=== PATIENT | female | born 2005 | race Caucasian/White ===

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

== ENCOUNTER 2024-12-24 09:02 | Emergency (ER) | payer OTHER, SELFPAY ==
--- NOTE | ~2024-12-24 | CT_ITS ---
EXAMINATION: CT CERVICAL SPINE WITHOUT CONTRAST CLINICAL INFORMATION: Status post fall. COMPARISON: None available. TECHNIQUE: Contiguous axial images through the cervical spine using 3 mm collimation with bone and soft tissue algorithm. Sagittal and coronal reformatted images acquired. This CT examination was performed using dose optimization techniques as appropriate, variously including the following: *Automated exposure control *Adjustment of mA and/or kV according to patient size (this includes techniques or standardized protocols for targeted exams where dose is matched to indication/reason for exam; i.e. extremities or head) *Use of iterative reconstruction technique. DLP: 312 mGy centimeter. FINDINGS: Craniocervical junction is intact. C1 is intact. C2 is intact. C3 is intact. C4 is intact. C5 is intact. C6 is intact. C7 is intact. No gross prevertebral compartment hematoma. Soft tissue fullness in the lingual tonsils into the vallecula. Tympanic cavities and mastoid cells are aerated. CT/CT cervical spine wo IV con IMPRESSION: No acute fracture or trauma-related listhesis. Fleischner guidelines were followed. Electronically signed by: Leonel Bush MD 12/24/2024 01:24 PM [facility]
--- NOTE | ~2024-12-24 | CT_ITS ---
EXAMINATION: CT HEAD WITHOUT CONTRAST CLINICAL INFORMATION: fall, head strike, pain COMPARISON: None available. TECHNIQUE: Contiguous axial imaging was performed from the skull base to vertex without intravenous administration of contrast. This CT examination was performed using dose optimization techniques as appropriate, variously including the following: *Automated exposure control *Adjustment of mA and/or kV according to patient size (this includes techniques or standardized protocols for targeted exams where dose is matched to indication/reason for exam; i.e. extremities or head) *Use of iterative reconstruction technique DLP: 594 mGy-cm FINDINGS: Bony calvarium is intact. Skull base is intact. No acute intracranial hemorrhage, mass effect, midline shift, hydrocephalus or herniation. Ojeda-white matter differentiation is normal. Posterior cranial fossa contents demonstrated no acute intracranial hemorrhage or mass effect. Sellar/suprasellar region demonstrated no gross masses or hemorrhage. Craniocervical junction is intact. No air-fluid levels in the included paranasal sinuses. Tympanic cavities and mastoid air cells are aerated. CT/CT head/brain wo IV con IMPRESSION: No acute fracture, bony calvarium. No acute intracranial hemorrhage. Electronically signed by: Leonel Bush MD 12/24/2024 12:36 PM [facility] [place]
[2024-12-24 09:12] VITALS: BP 118/73; PULSE 102; RESP 16; TEMP 36.6; O2SAT 99; BMI 29.8
--- NOTE | 2024-12-24 09:31 | ED_ITS ---
HPI - General Adult General Chief complaint: Fall Stated complaint: fall head inj vomiting Time Seen by Provider: 12/24/24 09:28 Source: patient and family (patient's boyfriend) Mode of arrival: ambulatory Limitations: no limitations History of Present Illness ED Provider: Jamila Friedman PA-C HPI narrative: Patient is a 19 year old assigned female at with no reported medical history presenting to the emergency department today with a headache, nausea, vomiting, and diarrhea after a fall. Patient states that on 12/23/2024 around 3pm she fell, hitting her head. Patient states that after that, her and her boyfriend went out to eat and many hours after that, she began to have nausea, vomiting, and diarrhea. Patient states that she has also had an intermittent headache. Patient states that she did not have any loss of consciousness with the incident. Patient denies any dizziness, lightheadedness, abdominal pain, fever, chills, blurry vision, double vision, loss of vision, chest pain, difficulty breathing, shortness of breath, back pain, night sweats, pain with urination, increased urinary frequency, increased urinary urgency, blood in her urine or stool, syncope or a near syncopal episode, bowel incontinence, bladder incontinence, or any other complaints at this time. Relieving factors: none Exacerbating factors: none Associated symptoms: nausea/vomiting Treatments prior to arrival: none Related Data Previous Rx's ?Medication ?Instructions ?Recorded levofloxacin 750 mg tablet 750 mg PO DAILY 5 days #5 tabs 03/21/22 loperamide 2 mg capsule 2 mg PO Q4H PRN loose stool #10 04/05/23 caps ondansetron 4 mg disintegrating 4 mg PO Q6H PRN nausea and 04/05/23 tablet vomiting #10 tabs ondansetron 4 mg disintegrating 4 mg PO Q8H 3 days #9 tabs 12/24/24 tablet Allergies Allergy/AdvReac Type Severity Reaction Status Date / Time cephalexin Allergy Unknown Unknown Verified 12/24/24 09:14 Review of Systems 2 Constitutional: Constitutional: Reports no additional constitutional complaints, Denies chills, Denies fever(s), Reports headache(s) and Denies night sweats Eyes: Eyes: Reports no additional eye complaints, Denies blurry vision, Denies change in vision, Denies diplopia, Denies eye discharge, Denies loss of vision and Denies eye pain ENT: Denies dizziness and Reports headache(s) Cardiovascular: Cardiovascular: Reports no additional cardiovascular complaints, Denies chest pain, Denies lightheadedness, Denies Loss of Consciousness and Denies dyspnea Respiratory: Respiratory: Reports no additional respiratory complaints and Denies dyspnea Gastrointestinal: Gastrointestinal: Reports no additional gastrointestinal complaints, Denies abdominal pain, Denies melena, Denies hematochezia, Reports change in bowel habits, Reports change in stool character, Reports diarrhea, Reports nausea and Reports vomiting Genitourinary: Genitourinary: Denies hematuria, Denies urinary frequency, Denies dysuria, Denies urinary incontinence, Denies urinary hesitancy and Denies urinary urgency Musculoskeletal: Musculoskeletal: Reports no additional musculoskeletal complaints, Denies numbness and Denies tingling Neurologic: Denies dizziness, Reports headache(s), Denies loss of vision, Denies numbness and Denies tingling Psychiatric: Psychiatric: Reports no additional psychiatric complaints Endocrine: Endocrine: Reports no additional endocrine complaints Hematologic/Lymphatic: Hematologic/Lymphatic: Reports no additional hematologic/lymphatic complaints Allergic/Immunologic: Allergic/Immunologic: Reports no additional allergic/immunologic complaints PMFSH Past Medical History Attestation statement: The following information was validated with the patient. (all information validated with the patient's boyfriend) Source: old records reviewed, nursing notes reviewed and other (patient's boyfriend provided additional history and confirmed the history provided by the patient.) Social History Social History Alcohol intake: never Smoked in Last 30 Days: No Use of substances other than those prescribed or required for medical reasons: No Advance Directives: No Advance Directives Information Provided: Yes Physical Exam ED Vital Signs: Vital Signs - 24 hr 12/24/24 09:12 12/24/24 15:40 12/24/24 15:58 Temperature 98 F 98.2 F 98.2 F Pulse Rate 102 H 98 98 Respiratory Rate 16 18 18 Blood Pressure 118/73 112/59 L 112/59 L Pulse Oximetry 99 100 100 Oxygen Delivery Method Room Air Room Air Room Air BMI result Body Mass Index 29.8 Const General: cooperative, no acute distress, alert and awake Nutritional Appearance: well nourished Orientation/consciousness: patient oriented x3 Limitations: no limitations HENMT Head: Yes normal to inspection and Yes atraumatic Ears: hearing grossly normal bilaterally and external ears normal General nose exam: Normal external nose present, no nasal discharge noted and no epistaxis Face and sinus: Yes normal facial exam, No abrasion and No laceration Mouth: Normal oral and palatal mucosa present, no drooling and no muffled voice Eyes General: appearance normal, both eyes and all related structures Periorbital: periorbital findings normal Eyelids: Yes eyelids normal Conjunctivae: conjunctivae normal Pupils: Equal, round and reactive pupils present EOM: EOMs intact bilaterally Neck Neck: Yes normal visual inspection, Yes full ROM and Yes no lymphadenopathy Chest Chest palpation & inspection: normal inspection of the chest Resp Effort & Inspection: normal respiratory effort and able to speak in complete sentences GI Inspection: Yes normal to inspection Neuro General: patient oriented x3, moves all extremities and CN's II-XI intact bilaterally Cranial nerves: Yes Equal, round and reactive pupils present Cognition (Neuro): normal cognition Extrem General: Yes normal to inspection, Yes full ROM and Yes capillary refill normal Psych Appearance: grossly normal Mental Status: mental status grossly normal Affect: normal affect Attitude: cooperative Thought process: Normal thought process present Thought content: Normal thought content present Insight: Good insight present (Psych) Medications Administered Discontinued Medications Generic Name Dose Route Start Last Admin Trade Name Primitivoq PRN Reason Stop Dose Admin Diphenhydramine HCl 25 mg 12/24/24 13:36 12/24/24 13:50 Diphenhydramine Hcl 50 Mg/Ml Vial IVPUSH 12/24/24 13:37 25 mg ONCE ONE Administration Sodium Chloride 1,000 mls @ 999 mls/hr 12/24/24 13:45 12/24/24 15:22 Ns IV 12/24/24 14:45 Infused .Q1H1M VALENTIN Infusion Metoclopramide HCl 10 mg 12/24/24 13:36 12/24/24 13:51 Metoclopramide Hcl 10 Mg/2 Ml Vial IVPUSH 12/24/24 13:37 10 mg ONCE ONE Administration Ondansetron HCl 4 mg 12/24/24 09:58 12/24/24 10:12 Ondansetron Hcl 4 Mg/2 Ml Vial IVPUSH 12/24/24 09:59 4 mg ONCE ONE Administration Medical Decision Making Medical Decision Making MDM Narrative: Patient is a 19 year old assigned female at with no reported medical history presenting to the emergency department today with a headache, nausea, vomiting, and diarrhea after a fall. Patient's physical exam was unremarkable. Patient's blood work was unremarkable. Patient's urine showed no acute process. Patient's CT head and c-spine showed no acute process. I explained my physical exam findings as well as all test results to the patient and the patient's boyfriend. I answered all questions asked by the patient and the patient's boyfriend. Patient's clinical presentation is most consistent with a concussion and gastroenteritis. I do not believe patient's nausea, vomiting, and diarrhea are secondary to fall. Patient received IV fluids and anti-emetics which, upon re-evaluation, she stated it helped her symptoms significantly. I stressed the importance of the patient taking her medication as directed (either prescribed or as the over the counter packaging recommends). I stressed the importance of the patient following up with her primary care provider. I stressed the importance of the patient returning to the emergency department immediately if her symptoms were to worsen or if she were to develop any dizziness, shortness of breath, difficulty breathing, chest pain, blurry vision, loss of vision, nausea, vomiting, abdominal pain, fever, chills, back pain, or any other complaints. Patient and the patient's boyfriend verbalized agreement and understanding with this treatment plan and discharge. Differential Diagnosis Differential Diagnoses: The differential diagnosis associated with the presentation includes Concussion Nausea Vomiting Gastroenteritis Food poisoning Admission/Observation Consideration of admission/observation: Escalation of care including admission/observation considered Patient would have been admitted to the hospital had her work up had any findings where hospital admission was appropriate and her clinical presentation warranted hospital admission. Lab Data [facility] Lab Attestation statement: I reviewed the patient's lab results. My interpretation of these results are in the [facility] Rationale portion of this note. 12/24/24 10:11 12/24/24 10:11 Labs: Lab Results 12/24/24 Range/Units 10:11 WBC 9.9 (4.8-10.8) X10*3/uL RBC 4.72 (4.20-5.50) X10*6/uL Hgb 15.5 (12.0-16.0) g/dl Hct 43.0 (37.0-47.0) % MCV 91.1 (80.0-98.0) fL MCH 32.8 (27.0-33.0) pg MCHC 36.0 H (31.0-35.0) g/dl RDW 11.9 (11.0-16.0) % Plt Count 237 (160-400) X10*3/uL MPV 10.3 (9.4-12.3) fL Immature Gran % (Auto) 0.3 (0.0-0.4) % Neut % (Auto) 95.0 H (45-73) % Lymph % (Auto) 2.8 L (20-40) % Navarro % (Auto) 1.7 L (2-11) % Eos % (Auto) 0.0 (0-4) % Baso % (Auto) 0.2 (0-2) % Lymph # (Auto) 0.3 L (1.2-4.9) X10*3/uL Navarro # (Auto) 0.2 (0.1-1.2) X10*3/uL Eos # (Auto) 0.0 (0.0-0.4) X10*3/uL Baso # (Auto) 0.0 (0.0-0.2) X10*3/uL Abs Immat Gran (auto) 0.03 (0.00-0.03) X10*3/uL Absolute Neuts (auto) 9.4 H (2.0-8.3) x10*3/uL Absolute Nucleated RBC 0.000 (0.0-0.012) X10*3/uL Nucleated RBC % (auto) 0.0 (0.0-0.2) /100WBC Smear Tech's Comments VERIFIED Sodium 141 (135-145) mmol/L Potassium 3.5 (3.3-5.1) mmol/L Chloride 106 (96-108) mmol/L Carbon Dioxide 24 (22-29) mmol/L Anion Gap 15 (12-20) BUN 16 (9-16) mg/dL Creatinine 0.77 (0.5-1.4) mg/dL Estim Creat Clear Calc 114.0 Estimated GFR > 60 Random Glucose 131 H (60-115) mg/dL Calcium 9.4 (8.4-10.2) mg/dL Magnesium 1.8 (1.6-2.6) mg/dL Total Bilirubin 0.9 (0.0-1.0) mg/dL AST 20 (5-31) U/L ALT 12 (0-31) U/L Alkaline Phosphatase 60 (39-117) U/L Total Protein 8.3 H (6.5-8.0) g/dL Albumin 4.4 (3.5-5.0) g/dL Beta HCG, Quant < 2 mIU/mL Urine Color Yellow Urine Appearance Clear Urine pH 5.5 (5.0-9.0) Ur Specific [place] >= 1.030 H (1.005-1.025) Urine Protein Trace (Neg-Trace) mg/dL Urine Glucose (UA) Negative (Negative) mg/dL Urine Ketones 80 (Negative) mg/dL Urine Blood Negative (Negative) Urine Nitrite Negative (Negative) Ur Leukocyte Esterase Negative (Negative) Urine Test NEGATIVE (NEGATIVE) Influenza Type A (PCR) NEGATIVE (Negative) Influenza Type B (PCR) NEGATIVE (Negative) RSV RNA Qual (PCR) NEGATIVE (Negative) SARS-CoV-2 RNA (RT-PCR) NEGATIVE (Negative) Independent Interpretation I performed an independent interpretation of an: CT Scan Interpretation: My interpretation is in agreement with the radiologist's impression of these imaging studies. L Report Number: [id number]: Total DLP = 594.00 mGy-cm EXAMINATION: CT HEAD WITHOUT CONTRAST CLINICAL INFORMATION: fall, head strike, pain COMPARISON: None available. TECHNIQUE: Contiguous axial imaging was performed from the skull base to vertex without intravenous administration of contrast. This CT examination was performed using dose optimization techniques as appropriate, variously including the following: *Automated exposure control *Adjustment of mA and/or kV according to patient size (this includes techniques or standardized protocols for targeted exams where dose is matched to indication/reason for exam; i.e. extremities or head) *Use of iterative reconstruction technique DLP: 594 mGy-cm FINDINGS: Bony calvarium is intact. Skull base is intact. No acute intracranial hemorrhage, mass effect, midline shift, hydrocephalus or herniation. Ojeda-white matter differentiation is normal. Posterior cranial fossa contents demonstrated no acute intracranial hemorrhage or mass effect. Sellar/suprasellar region demonstrated no gross masses or hemorrhage. Craniocervical junction is intact. No air-fluid levels in the included paranasal sinuses. Tympanic cavities and mastoid air cells are aerated. CT/CT head/brain wo IV con IMPRESSION: No acute fracture, bony calvarium. No acute intracranial hemorrhage. Electronically signed by: Leonel Bush MD 12/24/2024 12:36 PM EST RP Dictated By: Leonel Aguiar MD Signed By: Electronically signed by Leonel Chambers MD 12/24/24 1236 Report Number: [id number]: Total DLP = 312.00 mGy-cm EXAMINATION: CT CERVICAL SPINE WITHOUT CONTRAST CLINICAL INFORMATION: Status post fall. COMPARISON: None available. TECHNIQUE: Contiguous axial images through the cervical spine using 3 mm collimation with bone and soft tissue algorithm. Sagittal and coronal reformatted images acquired. This CT examination was performed using dose optimization techniques as appropriate, variously including the following: *Automated exposure control *Adjustment of mA and/or kV according to patient size (this includes techniques or standardized protocols for targeted exams where dose is matched to indication/reason for exam; i.e. extremities or head) *Use of iterative reconstruction technique. DLP: 312 mGy centimeter. FINDINGS: Craniocervical junction is intact. C1 is intact. C2 is intact. C3 is intact. C4 is intact. C5 is intact. C6 is intact. C7 is intact. No gross prevertebral compartment hematoma. Soft tissue fullness in the lingual tonsils into the vallecula. Tympanic cavities and mastoid cells are aerated. CT/CT cervical spine wo IV con IMPRESSION: No acute fracture or trauma-related listhesis. Fleischner guidelines were followed. Electronically signed by: Leonel Bush MD 12/24/2024 01:24 PM EST RP Dictated By: Leonel Aguiar MD Signed By: Electronically signed by Leonel Chambers MD 12/24/24 2584 Radiology Impression Discussion of test interpretation with radiology: I have reviewed the radiologist's reading. Independent Historian Clinical information obtained from an independent historian. History obtained from or confirmed by: Other (patient's boyfriend provided additional history and confirmed the history provided by the patient.) Discharge Plan Discharge Clinical Impression: Concussion, Gastroenteritis Patient Disposition: Home, Self-Care Instructions: Concussion (ED), Gastroenteritis (DC) Additional Instructions: Follow up with your primary care provider. Return to the emergency department immediately if your symptoms worsen or if you develop any dizziness, shortness of breath, difficulty breathing, chest pain, blurry vision, loss of vision, nausea, vomiting, abdominal pain, fever, chills, back pain, or any other complaints. Prescriptions: New ondansetron 4 mg tablet,disintegrating 4 mg PO Q8H 3 Days Qty: 9 0RF No Action levofloxacin 750 mg tablet 750 mg PO DAILY 5 Days Qty: 5 0RF ondansetron 4 mg tablet,disintegrating 4 mg PO Q6H PRN (Reason: nausea and vomiting) Qty: 10 0RF loperamide 2 mg capsule 2 mg PO Q4H PRN (Reason: loose stool) Qty: 10 0RF Rx Instructions: administer after each loose stool until symptoms controlled; do not exceed 8 mg per 24 hrs Referrals: Alda Oconnor MD [Primary Care Provider] - Stand Alone Forms: Work/School Release Interventions: ED Discharge Assessment Last Done: 12/24/24 15:58 Discharge Date/Time: 12/24/24 16:01 Print Language: Occitan
[2024-12-24] MEDS: ondansetron HCL 4 MG/2 ML VIAL IVPUSH (10:12)
[2024-12-24 10:17] LABS: Basophils Percent Auto 0.2 % (0-2); Hemoglobin 15.5 g/dl (12.0-16.0); Imm Gran Abs Auto 0.03 X10*3/uL (0.00-0.03); Imm Gran Pct Auto 0.3 % (0.0-0.4); Lymphocytes Absolute Auto 0.3 X10*3/uL (1.2-4.9); Lymphocytes Percent Auto 2.8 % (20-40); MANUAL DIFF FLAG SCAN; Mean Corpuscular Hemoglobin 32.8 pg (27.0-33.0); Mean Corpuscular Volume 91.1 fL (80.0-98.0); Mean Platelet Volume 10.3 fL (9.4-12.3); Monocytes Absolute Auto 0.2 X10*3/uL (0.1-1.2); Monocytes Percent Auto 1.7 % (2-11); Neutrophils Absolute Auto 9.4 x10*3/uL (2.0-8.3); Platelet Count 237 X10*3/uL (160-400); Red Blood Count 4.72 X10*6/uL (4.20-5.50); Red Cell Distribution Width 11.9 % (11.0-16.0); SCAN SMEAR FLAG 1; White Blood Count 9.9 X10*3/uL (4.8-10.8)
[2024-12-24 10:21] LABS: Appearance Urine Clear; Color Urine Yellow; Glucose Urine UA Negative (Negative); Leukocyte Esterase Urine Negative (Negative); Nitrite Urine Negative (Negative); PH 5.5 (5.0-9.0); Specific Gravity - Urine >= 1.030 (1.005-1.025); UPreg QC Valid YES; Urine Blood Negative (Negative); Urine Ketones 80 mg/dL (Negative); Urine Pregnancy NEGATIVE (NEGATIVE); Urine Protein Trace mg/dL (Neg-Trace)
[2024-12-24 10:42] LABS: Alanine Aminotransferase 12 U/L (0-31); Albumin Level 4.4 g/dL (3.5-5.0); Anion Gap 15 (12-20); Aspartate Amino Transferase 20 U/L (5-31); Bilirubin Total 0.9 mg/dL (0.0-1.0); Blood Urea Nitrogen 16 mg/dL (9-16); Calcium 9.4 mg/dL (8.4-10.2); Carbon Dioxide 24 mmol/L (22-29); Chloride 106 mmol/L (96-108); Estimated Glomerular Filt Rate > 60; Glucose Random 131 mg/dL (60-115); Magnesium 1.8 mg/dL (1.6-2.6); Potassium 3.5 mmol/L (3.3-5.1); Sodium 141 mmol/L (135-145); Total Protein 8.3 g/dL (6.5-8.0)
[2024-12-24 10:45] LABS: HCG Quantitative < 2 mIU/mL; SLIDE REVIEW VERIFIED
[2024-12-24 10:54] LABS: Influenza A PCR NEGATIVE (Negative); Influenza B PCR NEGATIVE (Negative); Resp Syncy Virus RNA Qual PCR NEGATIVE (Negative); SARS COV2 PCR INHOUSE NEGATIVE (Negative)
--- OUTSIDE RECORDS SUMMARY | 2024-12-24 11:06 | XMS_ITS | Clinical Summary ---
Author Organization [facility] Address [address] [place] [address] Care Team Providers Care Line Production Cook Name Role Phone Alda Oconnor MD Primary Care Provider Allergies Active Allergy Reactions Criticality Noted Date Comments Cephalexin Hives Medium 08/14/2008 Medications inhaler,assist device,lg mask (BREATHERITE SPACER-MASK,ENMA LT MISC) Use as directed with albuterol inhaler. 7 Active cholecalciferol (VITAMIN D-3) 50 mcg (2,000 unit) capsule TAKE 1 CAPSULE BY MOUTH EVERY DAY 4 Active albuterol HFA (ProAir HFA) 90 mcg/actuation inhaler INHALE 2 PUFFS BY MOUTH EVERY 4 HOURS NEEDED FOR COUGH/WHEEZE 2 Active levonorgestrel- ethinyl estradiol (AVIANE,ALESSE) 0.1-20 mg-mcg per tablet TAKE 1 TABLET BY MOUTH EVERY DAY 4 Active Active Problems Problem Noted Date Diagnosed Date Menorrhagia with regular cycle 05/06/2017 Anxiety 10/04/2016 Overview (08/09/2024): Seen by psych crisis; some suicidal ideation referred for partial hospitalization/outpatient care 07/2020 - [facility] visit and started hydroxyzine 01/2021 telehealth visit - to start sertraline for anxiety (not allowed per insurance and never started) 07/2021 [facility] - to start fluoxetine 10 mg daily - increased to 20mg later in the month and to 40mg daily in August Seen by DONALD 11/06/21 (Elaine) who gave multiple therapist names, spoke with Dr Tyler who suggested change to escitalapram if no better on the fluoxetine Depression 09/29/2016 Overview (08/09/2024): Suicidal ideation; evaluated by psych crisis; referred for outpatient care/partial hospitalization Started on Immunizations Name Administration Dates Next Due DTaP (Infanrix) 6wks to less than 7yo ,2004,2004,06/25 DTaP / Hib 07/29/2005 YKiB-DNL-DKA (Pentacel) 2mo to less than 5yo 2004,2004,2004 H1N1 Inj Preservative Free 12/02/2009 HPV 9-valent (Gardisil) 9yo to less than 46yo 11/02/2023,06/29/2023,04/29/2023 Hepatitis B Pediatric (Enger ix B; Recombivax HB) to less than 20 yo 2004,2004,2004 IPV Inactivated polio (Ipol) 6wks and older 06/25/2009,2004,2004,06/25 Influenza trivalent, 0.5mL, preservative free (Fluarix; FluLaval; Fluzone) ages 6mo and older (Afluria) 3 years and older 08/05/2021,07/30/2020 Influenza trivalent, with pr eservative (Fluzone; Afluria) 6mo and older 12/04/2014,11/21/2013,09/05/2012,07/07,07/02/2010,12/02/2009,08/25/2006 ,10/25/2005,2004,2004 MMR, measles mumps and rubel la Live (Priorix; M-M-R II) 12mo and older 04/23/2008,07/29/2005 Meningococcal MCV4P 09/17/2020,01/16/2016 Pfizer SARS-CoV-2 COVID-19, mRNA, LNP-S, preservative free 12/27/2021,12/06/2021 Pneumococcal Conjugate Vacci ne, 7 Valent 04/27/2005,2004,2004,06/25 Tdap Tetanus diptheria acell ular pertussis (Boostrix; Adacel) 7yo and older 01/16/2016 Varicella live (Varivax) 12m o and older 04/23/2008,04/27/2005 Surgical History Surgery Date Site/Laterality Comments OTHER SURGICAL HISTORY 08/2013 PROCEDURE: UT UNLISTED PROCEDURE SMALL INTESTINE; COMMENT: obstruction Medical History Medical History Date Comments Routine or child health check DX:Routine infant or child health check Unspecified otitis media 10/31/2005 DX:Unsp ecified otitis media Croup 09/30/2005 DX:Croup Dermatitis due to cosmetics 05/31/2007 DX:D ermatitis due to cosmetics; COMMENT: red splotchy rash after using scented lotion Intestinal obstruction (CMS/HCC) 08/31/2013 DX:Intestinal obstruction (HCC); COMMENT: requiring surgery Shortness of breath 01/18/2017 DX:Shortness of breath Anxiety disorder DX:Anxiety diso rder Family History Medical History Relation Name Comments No Known Problems Brother Allergies Father Asthma Father Eczema Father mother Breast cancer Maternal Grandmother No Known Problems Mother Other: HEART Other 1 ? PAT SIDE Other cancer Other 2 MGGP No Known Problems Sister 1 No Known Problems Sister 2 Breast cancer Uncle mom side Relation Name Status Comments Brother Alive Father Alive 1971, asthma, G ERD; substance issues Maternal Grandmother Alive Mother Alive 1973, gastritis ; substance issues Other 1 Other 2 Sister 1 Alive Sister 2 Alive 04/05, asthma Uncle mom side Alive Social History Tobacco Use Types Packs/Day Years Used Date Smoking Tobacco: Every Day Smokeless Tobacco: Never Alcohol Use Standard Drinks/Week Comments No 0 (1 standard drink = 0.6 oz pur e alcohol) Comments Unknown Sex and Gender Information Value Date Recorded Sex Assigned at Not on file Legal Sex Female 2:14 PM EST Gender Identity Not on file Sexual Orientation Not on file Obstetrics History Last Filed Vital Signs Vital Sign Reading Time Taken Comments Blood Pressure 102/78 03/19/2024 2:17 PM EDT Pulse 96 03/19/2024 2:17 PM EDT Temperature - - Respiratory Rate - - Oxygen Saturation - - Inhaled Oxygen Concentration - - Weight 76.7 kg (169 lb) 03/19/2024 2:17 PM EDT Height 160 cm (5' 3 ) 03/19/2024 2:17 PM EDT Body Mass Index 29.94 03/19/2024 2:17 PM EDT Plan of Treatment Upcoming Encounters Date Type Department Care Team (Late st Contact Info) Description 04/29/2025 4:00 PM EDT Office Visit Adult Medicine [facility] [address] [place] [address] Deloris Nunn PA [address] [place] [address] Health Maintenance Due Date Last Done Comments Pneumococcal Vaccine: Pediatrics (0 to 5 Years) and At-Risk Patients (6 to 64 Years) (1 of 1 - PPSV23) 2010 04/27/2005, 2004, 2004, Additional history exists Meningococcal B Vacine (1 of 2 - Standard) 2020 HIV Screening 09/29/2022 Hepatitis C Screening 09/29/2022 Social Influencers of Health Screening 09/29/2022 Gonorrhea/Chlamydia Screening 03/07/2024 03/07/2023 Annual Well Child Visit (3-21 years old) 04/29/2024 04/29/2023, 03/07/2023, 09/07/2021, Additional history exists COVID-19 Vaccine ( season) 2024 12/27/2021, 12/06/2021 Influenza Vaccine (#1) 2024 , 07/30/2020, 12/04/2014, Additional history exists Depression Screening 03/19/2025 03/19/2024 DTaP,Tdap,and Td Vaccines (7 - Td or Tdap) 01/15/2026 01/16/2016, 06/25/2009, 07/29/2005, Additional history exists Cholesterol Screening (Lipid Panel) 04/29/2028 04/29/2023 Hepatitis B Vaccines Completed 2004, 2004, 2004 HIB Vaccines Completed 07/29/2005, 10/01, 2004, Additional history exists MMR Vaccines Completed 04/23/2008, 07/29/2005 Varicella Vaccines Completed 04/23/2008, 04/27/2005 IPV Vaccines Completed 06/25/2009, 10/01, 2004, Additional history exists Meningococcal ACWY Vaccine Completed 09/17/2020, HPV Vaccines Completed 11/02/2023, 06/02, 04/29/2023 Hepatitis A Vaccines Aged Out No long er eligible based on patient's age to complete this topic RSV Immunization Patients Under 20 months Aged Out No longer eligible based on patient's age to complete this topic Procedures Procedure Name Priority Date/Time Associated Diagnosis Comments DEPRESSION SCREENING Routine 03/19/2024 LIPID PANEL Routine 04/29/2023 GONORRHEA/CHLAMYDIA SCRREENING Routine 03/07/2023 from Last 3 Months or Most Recently Relevant to Health Maintenance Results * Depression Screening (03/19/2024) Depression Screening Abstracted [facility] Provider HEALTH MAINTENANCE Final Result * (ABNORMAL) Lipid panel (04/29/2023) Pathologist [facility] LDL/HDL Ratio 4 0 - 4 Triglycerides 103 0 - 150 mg/dL Cholesterol 213(A) 0 - 200 mg/dL HDL 58 >=40 mg/dL LDL Cholesterol 135(A) 0 - 100 mg/dL Blood Venous blood specimen / Unknown Historical Provider LAB BLOOD ORDERABLES Lavern l Result * Gonorrhea/Chlamydia Screening (03/07/2023) Pathologist [facility] Gonorrhea/Chla mydia Screening Abstracted Historical Provider HEALTH MAINTENANCE Final Result from Last 3 Months or Most Recently Relevant to Health Maintenance Care Teams Line Production Cook Relationship Specialty Start Date End Date Alda Oconnor MD PCP - General 09/30/22
[2024-12-24 13:04] LABS: Alkaline Phosphatase 60 U/L (39-117)
[2024-12-24] MEDS: 0.9 % Sodium Chloride 1,000 ML 999 ML IV (13:49)
[2024-12-24] MEDS: diphenhydrAMINE HCL 50 MG/ML VIAL 25 MG IVPUSH (13:50)
[2024-12-24] MEDS: Metoclopramide HCl 10 MG/2 ML VIAL IVPUSH (13:51)
[2024-12-24 15:40] VITALS: BP 112/59; PULSE 98; RESP 18; TEMP 36.8; O2SAT 100
[2024-12-24 15:58] VITALS: BP 112/59; PULSE 98; RESP 18; TEMP 36.8; O2SAT 100
== END 2024-12-24 16:01 | disposition home or self-care (01) ==
PROVIDERS: Physician Assistant Medical; Emergency Provider Emergency Medicine; PCP Internal Medicine
DX: S06.0X0A Concussion without loss of consciousness, initial encounter (principal); K52.9 Noninfective gastroenteritis and colitis, unspecified; R11.2 Nausea with vomiting, unspecified; R51.9 Headache, unspecified; M54.2 Cervicalgia; W19.XXXA Unspecified fall, initial encounter; Y93.9 Activity, unspecified; Y92.9 Unspecified place or not applicable; Y99.8 Other external cause status; Z03.818 Encounter for observation for suspected exposure to other biological agents ruled out; Z79.899 Other long term (current) drug therapy
CPT/HCPCS: 0241U; 70450; 72125; 80053; 81003; 81025; 83735; 84702; 85025; 96361; 96374; 96375; 99284; 99285; J1200; J2405; J2765

== ENCOUNTER → 2024-12-24 09:58 | Outpatient (BNV) | payer OTHER, SELFPAY | PROVIDERS: Emergency Provider Emergency Medicine; PCP Internal Medicine; Visit Provider Radiology Diagnostic Radiology | DX: S09.90XA Unspecified injury of head, initial encounter (principal); R11.10 Vomiting, unspecified; W19.XXXA Unspecified fall, initial encounter | CPT/HCPCS: 70450; 72125 ==

== ENCOUNTER 2025-05-02 21:45 | Emergency (ER) | payer OTHER, SELFPAY ==
[2025-05-02 21:48] VITALS: BP 130/83; PULSE 80; RESP 16; TEMP 36.8; O2SAT 98; BMI 28.7
[2025-05-02 22:21] LABS: Appearance Urine Cloudy; Glucose Urine UA Negative (Negative); PH 7.0 (5.0-9.0); Specific Gravity - Urine 1.025 (1.005-1.025); UMIC TRIGGER UACC YES; UPreg QC Valid YES
[2025-05-02 22:37] LABS: UACC Culture Trigger YES
[2025-05-02 22:45] VITALS: BP 119/79; PULSE 105; RESP 16; TEMP 36.6; O2SAT 99
--- NOTE | 2025-05-02 23:16 | ED.FEMALEGU ---
HPI - Female Genitourinary General Chief complaint: Urogenital-Female Stated complaint: Yeast infection? Time Seen by Provider: 05/02/25 22:32 History of Present Illness ED Provider: Ludwin Mireles MD HPI Narrative: This is a very healthy 20-year-old female with no significant medical history aside from mild intermittent asthma. She has had Jaqueline vaginosis in the past and feels she has it again with whitish discharge and irritation within the vagina. No burning dysuria flank pain or abdominal pain. No fever or chills in the past she has had easily treated candidal infections with 2 separate doses of fluconazole no complicated furuncles or vaginal cultures in the past per her Related Data Previous Rx's ?Medication ?Instructions ?Recorded levofloxacin 750 mg tablet 750 mg PO DAILY 5 days #5 tabs 03/21/22 loperamide 2 mg capsule 2 mg PO Q4H PRN loose stool #10 04/05/23 caps ondansetron 4 mg disintegrating 4 mg PO Q6H PRN nausea and 04/05/23 tablet vomiting #10 tabs ondansetron 4 mg disintegrating 4 mg PO Q8H 3 days #9 tabs 12/24/24 tablet fluconazole 150 mg tablet 150 mg PO Q3D 2 doses #2 tabs 05/02/25 Allergies Allergy/AdvReac Type Severity Reaction Status Date / Time cephalexin Allergy Unknown Hives Verified 05/02/25 21:50 [facility] Social History Social History Alcohol intake: never Smoked in Last 30 Days: No Use of substances other than those prescribed or required for medical reasons: No Advance Directives: No Advance Directives Information Provided: No Do you have a plan to hurt others: No Plan Patient : No Physical Exam Vital Signs: Vital Signs: Last Vital Signs Temp 97.8 F 05/02/25 23:34 Pulse 105 H 05/02/25 23:34 Resp 16 05/02/25 23:34 BP 119/79 05/02/25 23:34 Pulse Ox 99 05/02/25 23:34 O2 Del Method Room Air 05/02/25 23:34 BMI result Body Mass Index 28.7 Const: Other: GENERAL: Well appearing. No apparent distress. Alert. HEAD/NECK: No visual trauma. EYES: Normal to inspection. No conjunctival erythema. No discharge. ENMT: Hearing grossly normal. External nose normal. RESPIRATORY: Respiratory effort normal. CARDIOVASCULAR: Additional details (Grossly well perfused). SKIN: No jaundice. NEUROLOGICAL: Alert. Moving all extremities x4. Additional details (No gross motor deficits. Normal tone. ). PSYCHIATRIC: Alert. Appearance appropriate for situation. Patient deferred Medications Administered Discontinued Medications Generic Name Dose Route Start Last Admin Trade Name Freq PRN Reason Stop Dose Admin Fluconazole 150 mg 05/02/25 23:21 05/02/25 23:32 Fluconazole 150 Mg Tablet PO 05/02/25 23:22 150 mg ONCE ONE Administration Medical Decision Making Medical Decision Making MDM Narrative: Medical Decision Makin-year-old female with no immunocompromise with self-described classical vaginal candidiasis. Patient declines pelvic exam which I think is reasonable. Empiric treatment close follow up with process stripper recommended Testing Interpreted Independently: Not Applicable Radiology or Lab testing Results Reviewed: Urinalysis not suggestive of UTI Consults: Not Applicable Independent Historians/External Chart Reviews: Not Applicable Social Determinants of Health Impacting MDM/Planning: Not Applicable Lab Data Labs: Lab Results 05/02/25 Range/Units 22:13 Urine Color Yellow Urine Appearance Cloudy Urine pH 7.0 (5.0-9.0) Ur Specific [place] 1.025 (1.005-1.025) Urine Protein Trace (Neg-Trace) mg/dL Urine Glucose (UA) Negative (Negative) mg/dL Urine Ketones Trace (Negative) mg/dL Urine Blood Negative (Negative) Urine Nitrite Negative (Negative) Ur Leukocyte Esterase Small (1+) H (Negative) Urine RBC 0-2 (0-2) /HPF Urine WBC 0-5 (0-5) /HPF Ur Squamous Epith Cells 6-10 (0-2) /HPF Urine Bacteria 4+ (None Seen) Hyaline Casts 0-2 (0-2) /LPF Urine Test NEGATIVE (NEGATIVE) Ur N gonorrhoeae DNA (PCR) NOT DETECTED (Not Detect.) Ur Chlamydia DNA (PCR) NOT DETECTED (Not Detect.) Discharge Plan Discharge Clinical Impression: Acute candidiasis of vulva and vagina Patient Disposition: Home, Self-Care Instructions: Yeast Infection (ED) Additional Instructions: DISCHARGE DIAGNOSES: Suspected vaginal candidiasis HISTORY OF PRESENTATION: ?Discharge from the vagina and itching EMERGENCY DEPARTMENT COURSE,TESTS, TREATMENTS: While in the ED today you had a urine test that did not suggest urinary tract infection and were given the 1st dose of fluconazole and antifungal for yeast infection DISCHARGE MEDICATIONS: ?2nd dose of antifungal medication was prescribed to the pharmacy to be taken Tuesday FOLLOW-UP: ?Call your primary or general physician soon as possible to discuss your symptoms, your ED visit and to discuss follow up plans Call your process stripper for follow up INSTRUCTIONS ?& RETURN PRECAUTIONS: If any symptoms change first call your primary physician, if it is after-hours your primary doctors office should have a provider chemical operations specialist you can speak with. If the symptoms are severe or very concerning to you then call 911 or return to the ED. Returned for pelvic pain severe worsening discharge despite treatment Ludwin Mireles MD Emergency Physician [facility] Prescriptions: New fluconazole 150 mg tablet 150 mg PO Q3D Qty: 2 0RF Rx Instructions: Patient only needs to take 1 dose. Additional dose is provided to keep at home in case she develops subsequent symptoms No Action levofloxacin 750 mg tablet 750 mg PO DAILY 5 Days Qty: 5 0RF ondansetron 4 mg tablet,disintegrating 4 mg PO Q6H PRN (Reason: nausea and vomiting) Qty: 10 0RF loperamide 2 mg capsule 2 mg PO Q4H PRN (Reason: loose stool) Qty: 10 0RF Rx Instructions: administer after each loose stool until symptoms controlled; do not exceed 8 mg per 24 hrs ondansetron 4 mg tablet,disintegrating 4 mg PO Q8H 3 Days Qty: 9 0RF Interventions: ED Discharge Assessment Last Done: 05/02/25 23:34 Discharge Date/Time: 05/02/25 23:35 Print Language: Mosotho
[2025-05-02 23:34] VITALS: BP 119/79; PULSE 105; RESP 16; TEMP 36.6; O2SAT 99
[2025-05-03 05:09] LABS: CT PCR Urine NOT DETECTED (Not Detect.); NG PCR Urine NOT DETECTED (Not Detect.)
== END 2025-05-02 23:35 | disposition home or self-care (01) ==
PROVIDERS: Emergency Provider Emergency Medicine; PCP Internal Medicine
DX: B37.31 Acute candidiasis of vulva and vagina (principal); Z79.899 Other long term (current) drug therapy
CPT/HCPCS: 36415; 81001; 81025; 87086; 87491; 87591; 99283; 99284